=== PATIENT | male | born 1985 | race African-American/Black ===

== ENCOUNTER 2017-10-28 19:14 | Inpatient (IN) | payer MEDICAID, OTHER ==
[~2017-10-28] VITALS: Ht 177.8 cm; Wt 99.0 kg
[2017-10-28 20:20] LABS: Calcium 8.6 mg/dL (8.5-10.1); Potassium 3.9 mmol/L (3.5-5.1)
[2017-10-28 20:22] LABS: BUN/Creatinine Ratio 10.1; Basophils # (auto) 0.1 uL; Basophils % (auto) 1.2 % (0.0-2.0); Eosinophils # (auto) 0 uL; Eosinophils % (auto) 0.5 % (0.0-7.0); Hematocrit 45.1 % (41.0-53.0); Hemoglobin 15.3 g/dL (13.5-17.5); Lymphocytes # (auto) 1.9 uL; Lymphocytes % (auto) 21.2 % (10.0-50.0); Mean Corpuscular Hemoglobin 30.7 pg (28.0-32.0); Mean Corpuscular Volume 90.2 fL (80.0-100.0); Monocytes # (auto) 0.7 uL; Monocytes % (auto) 7.9 % (0.0-12.0); Neutrophils # (auto) 6.1 uL; Neutrophils % (auto) 69.2 % (37.0-80.0); Platelet Count (auto) 246 10^3/uL (140-450); Red Cell Distribution Width 13.8 % (11.8-14.3); White Blood Cell 8.9 10^3/uL (4.4-10.8)
[2017-10-28 20:25] LABS: Bilirubin, Total 0.3 mg/dL (0.2-1.0); Total Protein 7.7 g/dL (6.4-8.2)
[2017-10-28 22:39] LABS: INR 1.02 (0.9-1.15); Partial Thromboplastin Time 19.8 sec (22.64-33.71); Prothrombin Time 11.1 sec (9.37-12.3)
[2017-10-29] MEDS ORDERED: HYDROcodone-ACET 10/325MG TAB PO ONE
[2017-10-29] MEDS ORDERED: LORazepam 2MG/ML-1ML VIAL ONE (00:40)
[2017-10-29] MEDS ORDERED: LEVETIRACETAM 500 MG/5ML INJ IV ONE (00:53)
[2017-10-29] MEDS ORDERED: LORazepam 2MG/ML-1ML VIAL IV ONE (01:00)
[2017-10-29] MEDS ORDERED: LEVETIRACETAM INJ 1,000 MG in D5W 5% 100 ML IV ONE (01:00)
[2017-10-29 01:03] LABS: Urine Bacteria NONE SEEN /hpf (None Seen); Urine Blood Negative /uL (Negative); Urine Specific Gravity 1.022 (1.001-1.035); Urine WBC 1 /hpf (0 - 3)
[2017-10-29 01:26] LABS: Alcohol, Urine < 3.0 mg/dL (0-5); Amphetamine Screen, Urine NEGATIVE (NEGATIVE); Barbiturate Scree,Urine NEGATIVE (NEGATIVE); Benzodiazephine Screen, Urine NEGATIVE (NEGATIVE); Cannabinoid Screen, Urine POSITIVE (NEGATIVE); Cocaine Screen, Urine NEGATIVE (NEGATIVE); Opiate Scree,Urine NEGATIVE (NEGATIVE); Phencyclidine Screen, Urine NEGATIVE (NEGATIVE)
[2017-10-29] MEDS ORDERED: MORPHINE SULFATE 4 MG/ML SYR/VIAL IV PRN ×2 (02:45→19:45)
[2017-10-29] MEDS ORDERED: ACETAMINOPHEN 325 MG TAB PO PRN (02:45)
[2017-10-29] MEDS ORDERED: ONDANSETRON HCL 4 MG/2 ML VIAL IV PRN (02:45)
[2017-10-29] MEDS ORDERED: LORazepam 2MG/ML-1ML VIAL IV PRN ×2 (02:45→08:15)
[2017-10-29] MEDS ORDERED: NITROGLYCERIN 0.4 MG SL TAB SL PRN (02:45)
[2017-10-29] MEDS ORDERED: TEMAZEPAM 15 MG CAP PO PRN (02:45)
[2017-10-29 04:05] VITALS: BP 129/73
[2017-10-29 08:00] VITALS: BP 144/95
[2017-10-29 09:58] VITALS: BP 144/95
[2017-10-29] MEDS: ENOXAPARIN SOD 40 MG/0.4 ML SYRINGE SC SCH (10:00)
[2017-10-29] MEDS ORDERED: LEVETIRACETAM 500 MG TAB PO SCH (10:00)
[2017-10-29] MEDS ORDERED: HYDROcodone-ACET 5/325MG TAB PO ONE (10:45)
[2017-10-29] MEDS: FAMOTIDINE 20 MG TAB PO SCH ×2 (10:58→22:00)
[2017-10-29 13:00] VITALS: BP 126/76
[2017-10-29 17:11] VITALS: BP 135/79
[2017-10-29] MEDS: HYDROcodone-ACET 10/325MG TAB PO PRN (21:07)
[2017-10-29 22:26] VITALS: BP 141/94
[2017-10-30 05:04] VITALS: BP 146/89
[2017-10-30 07:30] VITALS: BP 146/97
[2017-10-30 08:49] LABS: Basophils # (auto) 0.1 uL; Basophils % (auto) 0.8 % (0.0-2.0); Eosinophils # (auto) 0.1 uL; Eosinophils % (auto) 0.7 % (0.0-7.0); Hematocrit 48.6 % (41.0-53.0); Hemoglobin 16.3 g/dL (13.5-17.5); Lymphocytes # (auto) 1.7 uL; Lymphocytes % (auto) 20.5 % (10.0-50.0); Mean Corpuscular Hemoglobin 30.1 pg (28.0-32.0); Mean Corpuscular Hgb Conc. 33.6 g/dL (32.0-36.0); Mean Corpuscular Volume 89.5 fL (80.0-100.0); Monocytes # (auto) 0.9 uL; Monocytes % (auto) 10.4 % (0.0-12.0); Neutrophils # (auto) 5.6 uL; Neutrophils % (auto) 67.6 % (37.0-80.0); Nucleated Red Blood Cells % 0.2 %; Platelet Count (auto) 287 10^3/uL (140-450); Red Blood Cells 5.43 10^6/uL (4.5-5.90); Red Cell Distribution Width 13.6 % (11.8-14.3); White Blood Cell 8.3 10^3/uL (4.4-10.8)
[2017-10-30] MEDS: HYDROcodone-ACET 10/325MG TAB PO PRN ×2 (08:58→14:59)
[2017-10-30 09:00] VITALS: BP 146/97
[2017-10-30 09:02] LABS: BUN/Creatinine Ratio 6.6; Bilirubin, Total 1.3 mg/dL (0.2-1.0); Calcium 8.5 mg/dL (8.5-10.1); Potassium 3.3 mmol/L (3.5-5.1); Total Protein 7.9 g/dL (6.4-8.2)
[2017-10-30] MEDS: ENOXAPARIN SOD 40 MG/0.4 ML SYRINGE SC SCH (10:00)
[2017-10-30] MEDS: FAMOTIDINE 20 MG TAB PO SCH (10:19)
[2017-10-30 13:00] VITALS: BP 143/96
[2017-10-30] MEDS ORDERED: POTASSIUM CHL 20 Meq TABLET PO ONE (14:30)
== END 2017-10-30 16:15 | disposition home or self-care (01) | DRG 53 ==
LOC: ER 19:20 → TELE 19:21 → TELE-EAST 10-29 04:09
PROVIDERS: ADMIT Nurse Practitioner; ATTEND Internal Medicine
DX: G40.409 Other generalized epilepsy and epileptic syndromes, not intractable, without status epilepticus (principal); E87.6 Hypokalemia; S33.9XXA Sprain of unspecified parts of lumbar spine and pelvis, initial encounter; S01.552A Open bite of oral cavity, initial encounter; E66.9 Obesity, unspecified; G47.00 Insomnia, unspecified; F12.90 Cannabis use, unspecified, uncomplicated; X58.XXXA Exposure to other specified factors, initial encounter; Z68.31 Body mass index [BMI] 31.0-31.9, adult; Z82.0 Family history of epilepsy and other diseases of the nervous system; Z82.49 Family history of ischemic heart disease and other diseases of the circulatory system; Z83.3 Family history of diabetes mellitus; Y93.89 Activity, other specified; Y92.89 Other specified places as the place of occurrence of the external cause; Y99.8 Other external cause status
CPT/HCPCS: 36415; 70450; 70551; 71045; 72110; 80053; 80307; 80320; 81001; 83735; 84484; 85025; 85610; 85730; 94761; 95819; 96365; 96375; J7060